=== PATIENT | male | born 1995 ===

== ENCOUNTER 2018-05-24 21:07 | Emergency (ER) | payer SELFPAY ==
[2018-05-24 21:14] VITALS: BP 141/72; PULSE 89; RESP 18; TEMP 98.2; O2SAT 98
[2018-05-24] MEDS ORDERED: Lidocaine PF 2% (5 ml) Inj (For Cardiac Arrhy) ONE (21:50)
[2018-05-24] MEDS ORDERED: Tdap Vaccine 0.5 ml Vial (10-64 yrs) IM ONE (22:11)
--- NOTE | 2018-05-24 22:26 | ED PDOC ---
Upper Extremity Pain/Injury Time Seen by Provider: 05/24/18 21:15 Chief Complaint (Nursing): Finger,Hand,&Wrist Chief Complaint (Provider): Hand laceration History Per: Patient Additional Complaint(s): Pt states he cut his left hand while at work w/ the handle of a metal door. Pt w/ lac to left hand. Past Medical History Reviewed: Nursing Documentation, Vital Signs Vital Signs: Last Vital Signs Temp 98.2 F 05/24/18 21:09 Pulse 89 05/24/18 21:09 Resp 18 05/24/18 21:09 BP 141/72 05/24/18 21:09 Pulse Ox 98 05/24/18 21:09 - Medical History PMH: No Chronic Diseases - Surgical History Surgical History: No Surg Hx - Family History Family History: States: No Known Family Hx - Living Arrangements Living Arrangements: With Family - Allergies Allergies/Adverse Reactions: Allergies Allergy/AdvReac Type Severity Reaction Status Date / Time No Known Allergies Allergy Verified 05/24/18 21:14 Review of Systems ROS Statement: Except As Marked, All Systems Reviewed And Found Negative Skin: Positive for: Other (laeration) Physical Exam - Reviewed Nursing Documentation Reviewed: Yes Vital Signs Reviewed: Yes - Physical Exam Appears: Positive for: Well, Non-toxic, No Acute Distress Head Exam: Positive for: ATRAUMATIC, NORMAL INSPECTION, NORMOCEPHALIC Skin: Positive for: Normal Color, Warm, DRY Eye Exam: Positive for: EOMI, Normal appearance, PERRL ENT: Positive for: Normal ENT Inspection Neck: Positive for: Normal, Painless ROM Cardiovascular/Chest: Positive for: Regular Rate, Rhythm Respiratory: Positive for: CNT, Normal Breath Sounds Gastrointestinal/Abdominal: Positive for: Normal Exam, Soft Back: Positive for: Normal Inspection Extremity: Positive for: Other (left hand (+) 6 cm laceration to dorsal aspect, between 2-3rd metacarpals. no active bleed. ) Neurologic/Psych: Positive for: Alert, Oriented - ECG O2 Sat by Pulse Oximetry: 98 Medical Decision Making Medical Decision Making: Wound repaired by DANG Landa Disposition - Clinical Impression Clinical Impression: Laceration - Patient ED Disposition Is Patient to be Admitted: No - Disposition Disposition: Routine/Home Disposition Time: 23:13 Condition: STABLE Additional Instructions: suture removal in 7-10 days Instructions: Laceration Repair Forms: [facility] (Green[place]ic), [facility] School/Work Excuse Laceration - Laceration Repair No standard instances Wound Length (In cm): 6 Description Of Wound: Linear Wound Cleansed With: Betadine, Sterile Saline Anesthesia: Lidocaine 1% Wound Examination: Irrigated With Saline Wound Closure: Suture Suture Technique And Material Used: Interrupted, Nylon (5-0) Wound Complexity: Simple
== END 2018-05-24 23:27 | disposition home or self-care (01) ==
LOC: H.ER 21:07
DX: S61.412A Laceration without foreign body of left hand, initial encounter (principal); W26.8XXA Contact with other sharp object(s), not elsewhere classified, initial encounter; Y99.0 Civilian activity done for income or pay